=== PATIENT | male | born 1970 | race Caucasian/White ===

== ENCOUNTER 2018-04-08 21:12 | Inpatient (IN) | payer MEDICAID, OTHER ==
[~2018-04-08] VITALS: Ht 170.2 cm; Wt 61.7 kg
[2018-04-08] MEDS ORDERED: ONDANSETRON HCL 4MG/2ML INJ IV NR (23:23)
[2018-04-08] MEDS ORDERED: FOLIC ACID 1 MG, THIAMINE HCL 100 MG, MVI, ADULT NO.1 10 ML in DEXTROSE 5% WATER 1,000 ML IV NR ×4 (23:30)
[2018-04-08] MEDS ORDERED: MAGNESIUM 2 G PREMIX 50 ML IV ONE (23:30)
[2018-04-09 00:11] LABS: HEMATOCRIT. 36.4 % (42.0-52.0); HEMOGLOBIN. 12.8 g/dL (14.0-18.0); MEAN CORPUSCULAR HEMOGLOBIN 31.8 pg (28.0-32.0); MEAN CORPUSCULAR VOLUME 90.7 fL (80.0-94.0); MEAN PLATELET VOLUME 7.5 fl (7.4-10.4); PLATELET 107 x1000/uL (130-400); RED BLOOD CELL COUNT 4.02 mill/uL (4.7-6.1); RED CELL DISTRIBUTION WIDTH 15.5 % (11.6-14.6)
[2018-04-09 00:14] LABS: CHLORIDE 87 mEq/L (98-107); PROTHROMBIN TIME 10.4 sec (9.1-11.1)
[2018-04-09 00:18] LABS: ETHANOL BLOOD < 10 mg/dL
[2018-04-09 00:20] LABS: AMMONIA 30 uMol/L (<32)
[2018-04-09 00:32] LABS: PLATELET ESTIMATE DECREASED
[2018-04-09] MEDS ORDERED: MAGNESIUM 1G PREMIX 100ML IV NR ×2 (01:00)
[2018-04-09] MEDS ORDERED: LEVOFLOXACIN 750MG PREMIX 150 ML IV ONE (01:30)
[2018-04-09] MEDS ORDERED: SODIUM CHLORIDE 0.9% 1,000 ML IV SCH (01:41)
[2018-04-09 05:40] VITALS: BP 118/86
[2018-04-09] MEDS ORDERED: PHEN300C6 PO (05:59)
[2018-04-09] MEDS ORDERED: ACETAMINOPHEN 325MG TABLET PO PRN (07:30)
[2018-04-09] MEDS ORDERED: HYDROCODONE/ACETAMINOPHEN 5/325MG TABLET PO PRN (07:30)
[2018-04-09] MEDS ORDERED: ACETAMINOPHEN 650MG/20.3ML UDC GT PRN (07:30)
[2018-04-09] MEDS ORDERED: ACETAMINOPHEN 650MG SUPP PR PRN (07:30)
[2018-04-09] MEDS ORDERED: MAGNESIUM/ALUMINUM HYDROXIDE/SIMETHICONE 30ML UDC PO PRN (07:30)
[2018-04-09] MEDS ORDERED: ONDANSETRON HCL 4MG/2ML INJ IV PRN (07:30)
[2018-04-09 08:00] VITALS: BP 121/80
[2018-04-09] MEDS ORDERED: PHENYTOIN SODIUM 1,000 MG in SODIUM CHLORIDE 0.9% 100 ML IV SCH (09:00)
[2018-04-09 12:00] VITALS: BP 124/73
[2018-04-09 12:19] LABS: AMMONIA 52 uMol/L (<32)
[2018-04-09] MEDS: IPRATROPIUM/ALBUTEROL 0.5-3(2.5)MG/3ML NEB INH SCH ×2 (13:18→20:47)
[2018-04-09] MEDS: SODIUM CHLORIDE 0.45% 1,000 ML IV SCH (14:40)
[2018-04-09] MEDS: CHLORDIAZEPOXIDE 25MG CAPSULE PO SCH ×2 (14:41→21:38)
[2018-04-09] MEDS: FOLIC ACID 1MG TABLET PO SCH (14:41)
[2018-04-09] MEDS: THIAMINE HCL 100MG TABLET PO SCH (14:41)
[2018-04-09 16:00] VITALS: BP 127/84
[2018-04-09 17:10] LABS: CREATINE KINASE 686 IU/L (39-308)
[2018-04-09 17:11] LABS: CREATINE KINASE MB FRACTION 4.3 ng/mL (0.5-3.6)
[2018-04-09] MEDS: LORAZEPAM 2MG/ML CPJ IV PRN ×2 (18:11→22:12)
[2018-04-09 20:00] VITALS: BP 109/79
[2018-04-10 00:09] LABS: CREATINE KINASE 622 IU/L (39-308)
[2018-04-10 00:10] LABS: CREATINE KINASE MB FRACTION 4.6 ng/mL (0.5-3.6)
[2018-04-10 00:25] VITALS: BP 124/77
[2018-04-10] MEDS: IPRATROPIUM/ALBUTEROL 0.5-3(2.5)MG/3ML NEB INH SCH ×4 (01:18→20:28)
[2018-04-10 04:00] VITALS: BP 113/79
[2018-04-10] MEDS: SODIUM CHLORIDE 0.45% 1,000 ML IV SCH ×2 (04:03→19:05)
[2018-04-10] MEDS: LEVOFLOXACIN 750MG PREMIX 150 ML IV SCH (04:04)
[2018-04-10] MEDS: CHLORDIAZEPOXIDE 25MG CAPSULE PO SCH ×3 (05:06→21:08)
[2018-04-10 08:13] VITALS: BP 122/87
[2018-04-10 08:40] LABS: BASOPHILS % 0.7 % (0.0-2.0); EOSINOPHILS % 0.2 % (0.0-5.0); HEMATOCRIT. 40.1 % (42.0-52.0); LYMPHOCYTES % 16.4 % (20.0-50.0); MEAN CORPUSCULAR HEMOGLOBIN 32.3 pg (28.0-32.0); MEAN CORPUSCULAR VOLUME 92.6 fL (80.0-94.0); MEAN PLATELET VOLUME 8.2 fl (7.4-10.4); MONOCYTES % 11.2 % (2.0-8.0); NEUTROPHILS % 71.5 % (40.0-76.0); PLATELET 102 x1000/uL (130-400); RED BLOOD CELL COUNT 4.33 mill/uL (4.7-6.1); RED CELL DISTRIBUTION WIDTH 15.2 % (11.6-14.6)
[2018-04-10] MEDS: THIAMINE HCL 100MG TABLET PO SCH (09:05)
[2018-04-10] MEDS: FOLIC ACID 1MG TABLET PO SCH (09:06)
[2018-04-10 09:23] LABS: *BENZODIAZEPINES SCREEN URINE PRESUMTIVE POSITIVE (NEGATIVE); *COCAINE SCREEN URINE NEGATIVE (NEGATIVE); CANNABINOID URINE SCREEN NEGATIVE (NEGATIVE); METHADONE URINE SCREEN NEGATIVE (NEGATIVE); OPIATES URINE SCREEN NEGATIVE (NEGATIVE); PHENCYCLIDINE URINE SCREEN NEGATIVE (NEGATIVE)
[2018-04-10 09:31] LABS: *BARBITURATES SCREEN URINE NEGATIVE (NEGATIVE)
[2018-04-10 09:32] LABS: *AMPHETAMINES SCREEN URINE NEGATIVE (NEGATIVE)
[2018-04-10 10:49] LABS: CHLORIDE 93 mEq/L (98-107)
[2018-04-10 10:58] LABS: LDL CHOLESTEROL 105 mg/dL (5-100)
[2018-04-10 11:00] LABS: HDL CHOLESTEROL 112 mg/dL (40-59)
[2018-04-10 11:03] LABS: T4 FREE 1.03 ng/dL (0.76-1.46)
[2018-04-10] MEDS ORDERED: POTASSIUM CHLORIDE 20MEQ TABLET SR PO NR (11:51)
[2018-04-10 12:00] VITALS: BP 127/79
[2018-04-10 16:00] VITALS: BP 120/69
[2018-04-10] MEDS ORDERED: FOLIC ACID 1 MG, THIAMINE HCL 100 MG, MVI, ADULT NO.1 10 ML in DEXTROSE 5% WATER 1,000 ML IV ONE ×4 (16:30)
[2018-04-10] MEDS: QUETIAPINE FUMARATE 25MG TABLET PO SCH (17:45)
[2018-04-10] MEDS: HALOPERIDOL LACTATE 5MG/ML VIAL IM PRN (19:06)
[2018-04-10 20:00] VITALS: BP 113/71
[2018-04-10] MEDS: LORAZEPAM 2MG/ML CPJ IV PRN (21:08)
[2018-04-10] MEDS: PHENYTOIN SODIUM EXTENDED 100MG CAPSULE PO SCH (21:09)
[2018-04-11] MEDS: IPRATROPIUM/ALBUTEROL 0.5-3(2.5)MG/3ML NEB INH SCH ×4 (01:05→20:17)
[2018-04-11] MEDS: HALOPERIDOL LACTATE 5MG/ML VIAL IM PRN ×2 (02:16→17:01)
[2018-04-11 04:00] VITALS: BP 122/91
[2018-04-11] MEDS: SODIUM CHLORIDE 0.45% 1,000 ML IV SCH ×2 (04:46→23:12)
[2018-04-11] MEDS: LEVOFLOXACIN 750MG PREMIX 150 ML IV SCH (04:46)
[2018-04-11] MEDS: CHLORDIAZEPOXIDE 25MG CAPSULE PO SCH ×3 (06:19→21:00)
[2018-04-11 08:00] VITALS: BP 127/86
[2018-04-11 08:13] LABS: CHLORIDE 98 mEq/L (98-107); HEMATOCRIT. 39.2 % (42.0-52.0); HEMOGLOBIN. 13.4 g/dL (14.0-18.0); MEAN CORPUSCULAR HEMOGLOBIN 32.2 pg (28.0-32.0); PLATELET 116 x1000/uL (130-400); RED BLOOD CELL COUNT 4.17 mill/uL (4.7-6.1); RED CELL DISTRIBUTION WIDTH 15.1 % (11.6-14.6)
[2018-04-11] MEDS: THIAMINE HCL 100MG TABLET PO SCH (08:48)
[2018-04-11] MEDS: QUETIAPINE FUMARATE 25MG TABLET PO SCH ×2 (08:48→17:01)
[2018-04-11] MEDS: LEVOTHYROXINE SODIUM 50MCG TABLET PO SCH (08:49)
[2018-04-11] MEDS: FOLIC ACID 1MG TABLET PO SCH (08:49)
[2018-04-11 12:00] VITALS: BP 105/73
[2018-04-11] MEDS: LORAZEPAM 2MG/ML CPJ IV PRN (15:17)
[2018-04-11 16:00] VITALS: BP 104/75
[2018-04-11 16:33] LABS: PLATELET ESTIMATE SLIGHTLY DECREASED
[2018-04-11] MEDS: POTASSIUM CHLORIDE 20MEQ TABLET SR PO SCH (17:01)
[2018-04-11 20:00] VITALS: BP 115/79
[2018-04-11] MEDS: PHENYTOIN SODIUM EXTENDED 100MG CAPSULE PO SCH (20:59)
[2018-04-12] VITALS: BP 116/80
[2018-04-12] MEDS: IPRATROPIUM/ALBUTEROL 0.5-3(2.5)MG/3ML NEB INH SCH ×2 (02:33→20:26)
[2018-04-12 04:00] VITALS: BP 135/93
[2018-04-12] MEDS: LEVOFLOXACIN 750MG PREMIX 150 ML IV SCH (04:41)
[2018-04-12] MEDS: CHLORDIAZEPOXIDE 25MG CAPSULE PO SCH ×3 (06:00→21:11)
[2018-04-12] MEDS: LEVOTHYROXINE SODIUM 50MCG TABLET PO SCH (06:00)
[2018-04-12 08:00] VITALS: BP 134/98
[2018-04-12] MEDS: LORAZEPAM 2MG/ML CPJ IV PRN ×3 (08:52→16:35)
[2018-04-12] MEDS: THIAMINE HCL 100MG TABLET PO SCH (09:40)
[2018-04-12] MEDS: FOLIC ACID 1MG TABLET PO SCH (09:40)
[2018-04-12] MEDS: POTASSIUM CHLORIDE 20MEQ TABLET SR PO SCH (09:40)
[2018-04-12] MEDS: QUETIAPINE FUMARATE 25MG TABLET PO SCH ×2 (09:40→16:35)
[2018-04-12] MEDS: HALOPERIDOL LACTATE 5MG/ML VIAL IM PRN ×2 (10:37→23:14)
[2018-04-12 12:00] VITALS: BP 148/90
[2018-04-12] MEDS: SODIUM CHLORIDE 0.45% 1,000 ML IV SCH (13:30)
[2018-04-12 16:00] VITALS: BP 124/88
[2018-04-12 20:00] VITALS: BP 129/101
[2018-04-12 20:45] LABS: BASOPHILS % 1.3 % (0.0-2.0); EOSINOPHILS % 0.9 % (0.0-5.0); HEMATOCRIT. 40.2 % (42.0-52.0); HEMOGLOBIN. 13.7 g/dL (14.0-18.0); LYMPHOCYTES % 24.9 % (20.0-50.0); MEAN CORPUSCULAR HEMOGLOBIN 31.9 pg (28.0-32.0); MEAN CORPUSCULAR VOLUME 93.5 fL (80.0-94.0); MEAN PLATELET VOLUME 7.5 fl (7.4-10.4); NEUTROPHILS % 58.9 % (40.0-76.0); PLATELET 170 x1000/uL (130-400); RED CELL DISTRIBUTION WIDTH 15.3 % (11.6-14.6)
[2018-04-12 21:05] LABS: CHLORIDE 103 mEq/L (98-107)
[2018-04-12] MEDS: PHENYTOIN SODIUM EXTENDED 100MG CAPSULE PO SCH (21:11)
[2018-04-13] VITALS: BP 137/93
[2018-04-13] MEDS: IPRATROPIUM/ALBUTEROL 0.5-3(2.5)MG/3ML NEB INH SCH ×3 (02:16→20:14)
[2018-04-13] MEDS: SODIUM CHLORIDE 0.45% 1,000 ML IV SCH ×2 (04:06→17:53)
[2018-04-13] MEDS: LEVOFLOXACIN 750MG PREMIX 150 ML IV SCH (04:09)
[2018-04-13 04:11] VITALS: BP 123/78
[2018-04-13] MEDS: CHLORDIAZEPOXIDE 25MG CAPSULE PO SCH ×3 (06:10→21:05)
[2018-04-13] MEDS: LEVOTHYROXINE SODIUM 50MCG TABLET PO SCH (06:10)
[2018-04-13 07:55] VITALS: BP 109/80
[2018-04-13] MEDS: FOLIC ACID 1MG TABLET PO SCH (08:53)
[2018-04-13] MEDS: THIAMINE HCL 100MG TABLET PO SCH (08:53)
[2018-04-13] MEDS: QUETIAPINE FUMARATE 25MG TABLET PO SCH ×2 (08:53→17:53)
[2018-04-13] MEDS: POTASSIUM CHLORIDE 20MEQ TABLET SR PO SCH (08:53)
[2018-04-13 12:09] VITALS: BP 107/75
[2018-04-13] MEDS: MULTIVITAMINS,THER W-MINERALS TABLET PO SCH (12:44)
[2018-04-13] MEDS: METRONIDAZOLE 500MG TABLET PO SCH ×2 (12:44→21:05)
[2018-04-13 16:36] VITALS: BP 115/61
[2018-04-13 17:26] LABS: HEPATITIS B SURFACE ANTIGEN NEGATIVE
[2018-04-13 17:55] LABS: HEPATITIS B CORE AB IGM NEGATIVE
[2018-04-13 17:56] LABS: HEPATITIS A AB IGM NEGATIVE (NEGATIVE)
[2018-04-13 20:52] VITALS: BP 117/78
[2018-04-13] MEDS: PHENYTOIN SODIUM EXTENDED 100MG CAPSULE PO SCH (21:05)
[2018-04-14] VITALS (7 sets, daily range): BP systolic 112–118; BP diastolic 74–83
[2018-04-14] MEDS: IPRATROPIUM/ALBUTEROL 0.5-3(2.5)MG/3ML NEB INH SCH ×4 (02:55→20:42)
[2018-04-14] MEDS: LEVOFLOXACIN 750MG PREMIX 150 ML IV SCH (03:23)
[2018-04-14 05:34] LABS: BASOPHILS % 1.2 % (0.0-2.0); EOSINOPHILS % 2.5 % (0.0-5.0); HEMATOCRIT. 38.2 % (42.0-52.0); LYMPHOCYTES % 22.1 % (20.0-50.0); MEAN CORPUSCULAR HEMOGLOBIN 32.3 pg (28.0-32.0); MEAN PLATELET VOLUME 7.5 fl (7.4-10.4); MONOCYTES % 14.2 % (2.0-8.0); PLATELET 198 x1000/uL (130-400); RED BLOOD CELL COUNT 4.02 mill/uL (4.7-6.1); RED CELL DISTRIBUTION WIDTH 15.1 % (11.6-14.6)
[2018-04-14] MEDS: METRONIDAZOLE 500MG TABLET PO SCH ×2 (05:36→15:58)
[2018-04-14] MEDS: CHLORDIAZEPOXIDE 25MG CAPSULE PO SCH ×2 (05:36→14:00)
[2018-04-14] MEDS: LEVOTHYROXINE SODIUM 50MCG TABLET PO SCH (05:36)
[2018-04-14 06:05] LABS: CHLORIDE 105 mEq/L (98-107)
[2018-04-14 06:25] LABS: PHOSPHORUS 3.9 mg/dL (2.5-4.9)
[2018-04-14] MEDS: SODIUM CHLORIDE 0.45% 1,000 ML IV SCH (08:24)
[2018-04-14] MEDS: MULTIVITAMINS,THER W-MINERALS TABLET PO SCH (08:28)
[2018-04-14] MEDS: QUETIAPINE FUMARATE 25MG TABLET PO SCH (08:28)
[2018-04-14] MEDS: THIAMINE HCL 100MG TABLET PO SCH (08:28)
[2018-04-14] MEDS: POTASSIUM CHLORIDE 20MEQ TABLET SR PO SCH (08:28)
[2018-04-14] MEDS: FOLIC ACID 1MG TABLET PO SCH (08:28)
[2018-04-14] MEDS ORDERED: LORAZEPAM 2MG/ML CPJ IV PRN (10:30)
[2018-04-14] MEDS ORDERED: METR500T4 PO (15:15)
[2018-04-14] MEDS ORDERED: LACT10SO7 PO (15:15)
[2018-04-14] MEDS ORDERED: THIA100T72 PO (15:15)
[2018-04-14] MEDS ORDERED: LEVO50TA8 PO (15:15)
[2018-04-14] MEDS ORDERED: LACTULOSE 20G/30ML UDC PO SCH (22:00)
== END 2018-04-14 20:50 | disposition home or self-care (01) | DRG 53 ==
LOC: ER 21:12 → 6WST 04-09 01:42 → EDBEDREQ 04-09 01:59 → EDBEDREQTM 04-09 01:59 → ENRESERV 04-09 04:40 → 6WST 04-09 20:00
PROVIDERS: ADMIT Internal Medicine; ATTEND Internal Medicine
PROC: 4A00X4Z Measurement of Central Nervous Electrical Activity, External Approach (ICD-10-PCS; principal; 2018-04-10)
DX: G40.909 Epilepsy, unspecified, not intractable, without status epilepticus (principal); J96.00 Acute respiratory failure, unspecified whether with hypoxia or hypercapnia; J69.0 Pneumonitis due to inhalation of food and vomit; F10.231 Alcohol dependence with withdrawal delirium; E87.1 Hypo-osmolality and hyponatremia; E87.6 Hypokalemia; D64.9 Anemia, unspecified; E78.5 Hyperlipidemia, unspecified; F32.9 Major depressive disorder, single episode, unspecified; E83.42 Hypomagnesemia; R79.89 Other specified abnormal findings of blood chemistry; F41.0 Panic disorder [episodic paroxysmal anxiety]; G93.89 Other specified disorders of brain; Z86.73 Personal history of transient ischemic attack (TIA), and cerebral infarction without residual deficits; Z91.19 Patient's noncompliance with other medical treatment and regimen; Z79.899 Other long term (current) drug therapy; Z78.1 Physical restraint status
CPT/HCPCS: 36415; 70450; 70551; 71045; 76700; 80048; 80053; 80061; 80076; 80185; 80305; 82140; 82550; 82553; 83036; 83605; 83690; 83735; 83880; 84100; 84439; 84443; 84481; 84484; 85025; 85610; 86705; 86709; 86803; 87040; 87086; 87340; 93005; 93970; 94640; 96365; 96375; 97116; 97162; 97166; 97530; 99291; G0482; J1165; J1630; J1956; J2060; J2405; J3411; J3475; J3490; J7030; J7050; J7070; J7620